=== PATIENT | female | born 1955 | race Caucasian/White ===

== ENCOUNTER → 2016-08-09 | Outpatient (CLI) | payer OTHER ==
[~2016-08-09] MED LIST: HYDC25 PO; LEVO50TA60 PO; LISI-461 PO; LRT5 PO; VALA1TAB PO
[2016-08-09 07:57] LABS: BASO % 0.5 %; BASO ABS # 0.03 K/uL (0-0.2); COMPLETE YES; EOS % 6.4 %; IG% 0.2 %; LYMPH % 22.5 %; LYMPH ABS # 1.34 K/uL (1.2-3.4); MEAN CELL VOLUME 92.1 fL (80-100); MEAN CORPUSCULAR HEMOGLOBIN 30.5 pg (25-34); MEAN CORPUSCULAR HGB CONC 33.1 g/dl (32-36); MEAN PLATELET VOLUME 8.8 fL (7.4-10.4); NEUT % 64.4 %; PLATELET COUNT 299 K/uL (130-400); RED BLOOD COUNT 4.56 M/uL (4.2-5.4); WHITE BLOOD COUNT 5.96 K/uL (4.8-10.8)
[2016-08-09 09:05] LABS: ALT/SGPT 28 U/L (12-78); AST/SGOT 20 U/L (15-37); BLOOD UREA NITROGEN 21 mg/dl (7-18); BUN/CREATININE RATIO 24.7 (10-20); CALCIUM 9.4 mg/dl (8.5-10.1); CARBON DIOXIDE 27 mmol/L (21-32); CHLORIDE 106 mmol/L (98-107); CHOLESTEROL 234 mg/dl (0-200); CHOLESTEROL/HDL RATIO 4.3; CREATININE 0.86 mg/dl (0.60-1.20); GLUCOSE 89 mg/dl (70-99); HDL CHOLESTEROL 55 mg/dl; LDL CHOLESTEROL CALCULATED 160 mg/dl; POTASSIUM 4.1 mmol/L (3.5-5.1); SODIUM 141 mmol/L (136-145); TRIGLYCERIDES 93 mg/dl (0-150); VERY LOW DENSITY LIPOPROT CALC 19 mg/dl
[2016-08-09 09:15] LABS: ALB/GLOB RATIO 0.9 (0.9-2); ALKALINE PHOSPHATASE 95 U/L (45-117)
[2016-08-09 10:43] LABS: ESTIMATED AVERAGE GLUCOSE 126 mg/dl; HA1C FLAG Normal (Normal)
== END | disposition home or self-care (01) ==
LOC: C.LAB 07:38
PROVIDERS: ATTEND Physician Assistant
DX: Z00.00 Encounter for general adult medical examination without abnormal findings (principal); I10 Essential (primary) hypertension; E03.9 Hypothyroidism, unspecified

== ENCOUNTER → 2016-10-31 | Outpatient (CLI) | payer OTHER ==
--- NOTE | 2016-11-01 12:45 | MAMMOGRAPHY REPORT ---
BILATERAL DIGITAL SCREENING MAMMOGRAM TOMOSYNTHESIS WITH CAD: 10/31/2016 CLINICAL HISTORY: Routine screening. Patient has no complaints. TECHNIQUE: Breast tomosynthesis in addition to standard 2D mammography was performed. Current study was also evaluated with a Computer Aided Detection (CAD) system. COMPARISON: Comparison is made to exams dated: 10/27/2015 mammogram, 10/20/2014 mammogram, 07/08/2013 ma mmogram, 07/04/2012 mammogram, 07/04/2011 mammogram, and 05/30/2010 mammogram - [facility] nter. BREAST COMPOSITION: There are scattered areas of fibroglandular density in both breasts. FINDINGS: There is stable asymmetry in the medial right breast, which appears similar dating back to at least 12/06/2007, therefore likely benign. There are diffuse bilateral benign rim calcifications. No new suspicious mass, architectural distortion or cluster of microcalcifications is seen. IMPRESSION: ACR BI-RADS CATEGORY 1: NEGATIVE There is no mammographic evidence of malignancy. A 1 year screening mammogram is recommended. The pa tient will receive written notification of the results. Approximately 10% of breast cancers are not detected with mammography. A negative mammographic report should not delay biopsy if a clinically suggestive mass is present. Linda Tobar M.D. ay/:10/31/2016 16:26:08 Sr Vice President: Lizzeth Brown, [facility] letter sent: Normal 1/2 BI-RADS Code: ACR BI-RADS Category 1: Negative
== END | disposition home or self-care (01) ==
LOC: C.MAMM 15:37
PROVIDERS: ATTEND Physician Assistant
DX: Z12.31 Encounter for screening mammogram for malignant neoplasm of breast (principal)

== ENCOUNTER → 2017-07-24 | Day surgery (SDC) | payer OTHER ==
[2017-07-18 15:47] VITALS: Ht 162.6 cm; Wt 115.9 kg
[~2017-07-24] VITALS: Ht 162.6 cm; Wt 115.9 kg
[~2017-07-24] MED LIST changes: -HYDC25 PO; +HYDR25TA4 PO; +LEVO100T7 PO; -LEVO50TA60 PO; +LIDOCAINE HCL 2% 2 ML VIAL (20MG/ML) ONE; -LRT5 PO; +MIDAZOLAM HCL 1 MG/ML 2ML VIAL ONE; +PROPOFOL IV EMULSION 10 MG/ML 20 ML VIAL IV ONE; +SODIUM CHLORIDE 0.9% 500ML 500 ML IV ONE; -VALA1TAB PO
--- NOTE | 2017-07-24 08:49 | Endo History and Physical ---
History & Physical Date of Service: Jul 24, 2017. Chief Complaint: Screening Referring Physician: Dr. Dre Quispe History of Present Illness CRC screen (normal in 2007) Past Medical History High Cholesterol, Thyroid Disease Past Surgical History Hx Cardiac Surgery: No Hx Internal Defibrillator: No Hx Pacemaker: No Hx Abdominal Surgery: Yes (HYSTERECTOMY) Hx of Implantable Prosthesis: No Hx Post-Op Nausea and Vomiting: Yes Hx Cancer Surgery: No Hx Thoracic Surgery: No Hx Orthopedic: No Hx Urinary Tract Surgery: No Family History None Social History Smoking Status: Never Smoker Hx Substance Use: No Hx Alcohol Use: Yes (SOCIALLY) Allergies Coded Allergies: No Known Allergies (Verified , 07/18/17) Current Medications Reported Home Medications Medications Dose Route/Sig Max Daily Dose Days Date Category Levothyroxine Sodium 100 Mcg Tab 1 Tab PO QAM 07/18/17 Reported Hctz (Hydrochlorothiazide) 25 Mg Tab 25 Mg PO QAM 07/18/17 Reported Zestril (Lisinopril) 10 Mg Tab 10 Mg PO QAM 07/18/17 Reported Vital Signs Weight (Kilograms): 115.91 Height (Feet): 5 Height (Inches): 4 Date Time Temp Pulse Resp B/P (MAP) Pulse Ox O2 Delivery O2 Flow Rate FiO2 07/24/17 08:05 36.6 75 18 150/101 (117) 97 Room Air Physical Exam General Appearance: WD/WN, + obese Assessment and Plan ASA Class III Screening colonscopy
--- NOTE | 2017-07-24 09:46 | GI REPORT ---
Procedure Date: 07/24/2017 8:20 AM Procedure: Colonoscopy Indications: Screening for colorectal malignant neoplasm Medicines: See the Anesthesia note for documentation of the administered medications Complications: No immediate complications. Estimated Blood Loss: Estimated blood loss: none. Procedure: Pre-Anesthesia Assessment: - ASA Grade Assessment: III - A patient with severe systemic disease. After I obtained informed consent, the scope was passed under direct vision. Throughout the procedure, the patient's blood pressure, pulse, and oxygen saturations were monitored continuously. The Scope was introduced through the anus and advanced to the terminal ileum. The colonoscopy was performed without difficulty. The patient tolerated the procedure well. The quality of the bowel preparation was good. Findings: Hemorrhoids were found on perianal exam. Multiple small-mouthed diverticula were found in the sigmoid colon. There was a single diverticulum in the sigmoid colon with granulation tissure, and a small amount of erythema and pus. Multiple small non bleeding AVMs in the proximal colon. The exam was otherwise without abnormality. Impression: - Hemorrhoids found on perianal exam. - Diverticulosis in the sigmoid colon. - A few non-bleeding colonic angiodysplastic lesions. - The examination was otherwise normal. - No specimens collected. Recommendation: - Repeat exam in 10 years. - Discharge patient to home. - Abx for diverticulitis. Maxwell Coleman M.D. Maxwell Coleman MD 07/24/2017 9:46:27 AM This report has been signed electronically. Note Initiated On: 07/24/2017 8:20 AM I attest to the content of the Intraoperative Record and orders documented therein, exceptions below
--- NOTE | 2017-07-24 09:48 | Endo History and Physical ---
History & Physical Date of Service: Jul 24, 2017. Chief Complaint: Screening Referring Physician: Dr. Dre Quispe History of Present Illness CRC screen (last done in 2007) Past Surgical History Hx Cardiac Surgery: No Hx Internal Defibrillator: No Hx Pacemaker: No Hx Abdominal Surgery: Yes (HYSTERECTOMY) Hx of Implantable Prosthesis: No Hx Post-Op Nausea and Vomiting: Yes Hx Cancer Surgery: No Hx Thoracic Surgery: No Hx Orthopedic: No Hx Urinary Tract Surgery: No Family History None Social History Smoking Status: Never Smoker Hx Substance Use: No Hx Alcohol Use: Yes (SOCIALLY) Allergies Coded Allergies: No Known Allergies (Verified , 07/18/17) Current Medications Reported Home Medications Medications Dose Route/Sig Max Daily Dose Days Date Category Levothyroxine Sodium 100 Mcg Tab 1 Tab PO QAM 07/18/17 Reported Hctz (Hydrochlorothiazide) 25 Mg Tab 25 Mg PO QAM 07/18/17 Reported Zestril (Lisinopril) 10 Mg Tab 10 Mg PO QAM 07/18/17 Reported Vital Signs Weight (Kilograms): 115.91 Height (Feet): 5 Height (Inches): 4 Date Time Temp Pulse Resp B/P (MAP) Pulse Ox O2 Delivery O2 Flow Rate FiO2 07/24/17 08:05 36.6 75 18 150/101 (117) 97 Room Air Physical Exam General Appearance: no apparent distress, + obese Respiratory/Chest: Auscultation: breath sounds normal Cardiovascular: Heart Auscultation: RRR Abdomen: Inspection & Palpation: soft Assessment and Plan CRC screen - cscopy
--- NOTE | 2017-07-24 09:48 | Discharge Instructions ---
Endoscopy Patient Instructions Date / Procedure(s) Performed Jul 24, 2017. Colonoscopy Allergy Information Coded Allergies: No Known Allergies (Verified , 07/18/17) Discharge Date / Findings Jul 24, 2017. AVM's, tics, diverticulitis, small ext hemorrhoids. Provider Instructions Activity Restrictions - No exercising or heavy lifting for 24 hours. - Do not drink alcohol the day of the procedure. - Do not drive a car or operate machinery until the day after the procedure. - Do not make any important decisions or sign important papers in 24 hours after the procedure. Following Day: - Return to full activity which may include returning to work/school. Diet Start your diet with liquids and light foods (jello, soup, juice, toast). Then eat your usual diet if not nauseated. Treatment For Common After Affects For mild abdominal pain, bloating, or excessive gas: - Rest - Eat lightly - Lie on right side Follow-Up Information Follow-up with Dr. Dre Quispe as scheduled Anesthesia Information What You Should Know You have had a procedure that required some medicine to reduce anxiety and discomfort. This treatment is called moderate sedation. After receiving the treatment, you may be sleepy, but you will be able to breathe on your own. The effects of the treatment may last for several hours. Follow these instructions along with Activity/Diet recommendations noted above: * Do NOT do anything where dizziness or clumsiness would be dangerous. * Rest quietly at home today, then you can be up and about tomorrow. * Have a responsible person stay with you the rest of today. * You may have had an I.V. today. If so, you may take the dressing off later today. Recommendations Call your doctor if: * Trouble breathing * Continuous vomiting for more than 24 hours * Temperature above 101 degrees * Severe abdominal pain or bloating * Pain not relieved by pain medicine ordered * There is increased drainage or redness from any incision * A large amount of rectal bleeding greater than 2-3 tablespoons. (If you had a polyp/s removed or have hemorrhoids, a small amount of blood - from the rectum is to be expected.) * You have any unanswered questions or concerns. IN THE EVENT OF A SERIOUS EMERGENCY, GO TO THE NEAREST EMERGENCY ROOM Your discharge instructions were prepared by provider Dinah Naranjo. Patient Instructions Signature Page Gladys Ervin Patient (or Guardian) Signature/Date: I have read and understand the instructions given to me by my caregivers. Caregiver/RN/Doctor Signature/Date: The above-named patient and/or guardian has received patient instructions on this date. + Original Patient Signature Page (only) stays with chart. Please make copy for patient.
--- NOTE | 2017-07-24 09:54 | Anesthesiology Progress Note ---
Anesthesia Post Op Note Date & Time Jul 24, 2017 at 09:54 Vital Signs Pain Intensity: 0 Vital Signs Past 12 Hours Date Time Temp Pulse Resp B/P (MAP) Pulse Ox O2 Delivery O2 Flow Rate FiO2 07/24/17 08:05 36.6 75 18 150/101 (117) 97 Room Air Notes Mental Status: alert / awake / arousable, participated in evaluation Pt Amnestic to Procedure: Yes Nausea / Vomiting: adequately controlled Pain: adequately controlled Airway Patency, RR, SpO2: stable & adequate BP & HR: stable & adequate Hydration State: stable & adequate Anesthetic Complications: no major complications apparent
[2017-07-24 10:09] VITALS: BP 112/58; PULSE 61; O2SAT 100
== END | disposition home or self-care (01) ==
LOC: C.GI 07:36
PROVIDERS: ATTEND Internal Medicine Gastroenterology
DX: Z12.11 Encounter for screening for malignant neoplasm of colon (principal); E78.00 Pure hypercholesterolemia, unspecified; K64.9 Unspecified hemorrhoids; I10 Essential (primary) hypertension; K57.30 Diverticulosis of large intestine without perforation or abscess without bleeding; E78.5 Hyperlipidemia, unspecified; E66.9 Obesity, unspecified; Z68.41 Body mass index [BMI] 40.0-44.9, adult; Z90.710 Acquired absence of both cervix and uterus

== ENCOUNTER → 2017-11-01 | Outpatient (CLI) | payer OTHER ==
[~2017-11-01] MED LIST changes: -LIDOCAINE HCL 2% 2 ML VIAL (20MG/ML) ONE; -MIDAZOLAM HCL 1 MG/ML 2ML VIAL ONE; -PROPOFOL IV EMULSION 10 MG/ML 20 ML VIAL IV ONE; -SODIUM CHLORIDE 0.9% 500ML 500 ML IV ONE
--- NOTE | 2017-11-01 16:01 | MAMMOGRAPHY REPORT ---
BILATERAL DIGITAL SCREENING MAMMOGRAM TOMOSYNTHESIS WITH CAD: 11/01/2017 CLINICAL HISTORY: Routine screening. Patient has no complaints. TECHNIQUE: The study was acquired using full field digital technology and interpreted from soft copy. Breast tomosynthesis in addition to standard 2D mammography was performed. Current study was also ev aluated with a Computer Aided Detection (CAD) system. COMPARISON: Comparison is made to exams dated: 10/31/2016 mammogram, 10/27/2015 mammogram, 10/20/2014 m ammogram, 07/08/2013 mammogram, 07/04/2012 mammogram, and 07/04/2011 mammogram - [facility] nter. BREAST COMPOSITION: There are scattered areas of fibroglandular density in both breasts. FINDINGS: No suspicious masses, calcifications, or areas of architectural distortion are noted in either breast . There has been no significant interval change compared to prior exams. Scattered bilateral benign-a ppearing calcifications are not significantly changed. Asymmetry in the right lower inner quadrant i s stable dating back to at least the 2007 exam. IMPRESSION: ACR BI-RADS CATEGORY 2: BENIGN There is no mammographic evidence of malignancy. A 1 year screening mammogram is recommended.( 019) The patient will receive written notification of the results. Some breast cancers are not detected with mammography. A negative mammographic report should not andres y biopsy if a clinically suggestive mass is present. Florence Romero M.D. ah/:11/01/2017 15:03:54 Supervisory Cbp Officer: RT Sherie(Jose L)(M), [facility] letter sent: Normal 1/2 BI-RADS Code: ACR BI-RADS Category 2: Benign
== END | disposition home or self-care (01) ==
LOC: C.MAMM 14:20
PROVIDERS: ATTEND Physician Assistant
DX: Z12.31 Encounter for screening mammogram for malignant neoplasm of breast (principal)

== ENCOUNTER → 2017-11-10 | Outpatient (CLI) | payer OTHER ==
[2017-11-10 08:16] LABS: HEMATOCRIT 42.3 % (37-47); HEMOGLOBIN 14.1 g/dL (12.0-16.0); MEAN CELL VOLUME 91.4 fL (80-100); MEAN CORPUSCULAR HEMOGLOBIN 30.5 pg (25-34); MEAN CORPUSCULAR HGB CONC 33.3 g/dl (32-36); MEAN PLATELET VOLUME 9.2 fL (7.4-10.4); PLATELET COUNT 294 K/uL (130-400); RED CELL DISTRIBUTION WIDTH SD 46.9 fL (36.4-46.3); WHITE BLOOD COUNT 6.87 K/uL (4.8-10.8)
[2017-11-10 09:01] LABS: ALT/SGPT 24 U/L (12-78); BLOOD UREA NITROGEN 24 mg/dl (7-18); CALCIUM 9.4 mg/dl (8.5-10.1); CARBON DIOXIDE 27 mmol/L (21-32); CHOLESTEROL 170 mg/dl (0-200); CREATININE 0.93 mg/dl (0.60-1.20); GLUCOSE 103 mg/dl (70-99); LDL CHOLESTEROL CALCULATED 103 mg/dl; POTASSIUM 4.2 mmol/L (3.5-5.1); SODIUM 136 mmol/L (136-145)
[2017-11-10 09:20] LABS: HEMOGLOBIN A1C 6.1 % (4.5-5.6)
== END | disposition home or self-care (01) ==
LOC: C.LAB 12:45
PROVIDERS: ATTEND Physician Assistant
DX: Z00.00 Encounter for general adult medical examination without abnormal findings (principal); E03.9 Hypothyroidism, unspecified; I10 Essential (primary) hypertension; E66.01 Morbid (severe) obesity due to excess calories; Z86.2 Personal history of diseases of the blood and blood-forming organs and certain disorders involving the immune mechanism